=== PATIENT | female | born 1985 | race African-American/Black ===

== ENCOUNTER 2018-01-28 06:39 | Emergency (ER) | payer MEDICAID ==
[~2018-01-28] VITALS: Ht 157.5 cm; Wt 54.0 kg
[2018-01-28] MEDS ORDERED: SODIUM CHLORIDE 0.9% 1,000 ML IV ONE (10:06)
[2018-01-28] MEDS ORDERED: ONDANSETRON HCL 4MG/2ML VIAL IV STA (10:06)
[2018-01-28] MEDS ORDERED: MORPHINE SULFATE 4 MG/ML CPJ (NOT FOR IM USE) IV STA (10:06)
[2018-01-28 10:13] LABS: CLARITY URINE CLEAR (CLEAR); COLOR URINE YELLOW (YELLOW); KETONES URINE TRACE (NEGATIVE); LEUKOCYTE ESTERASE URINE NEGATIVE (NEGATIVE); NITRITE URINE NEGATIVE (NEGATIVE); OCCULT BLOOD URINE NEGATIVE (NEGATIVE); PROTEIN URINE NEGATIVE (NEGATIVE); SPECIFIC GRAVITY URINE 1.015 (1.005-1.030); UROBILINOGEN URINE 0.2 E.U./dL (0.2-1.0)
[2018-01-28 10:28] LABS: *AMPHETAMINES SCREEN URINE NEGATIVE (NEGATIVE); *BARBITURATES SCREEN URINE NEGATIVE (NEGATIVE); *BENZODIAZEPINES SCREEN URINE NEGATIVE (NEGATIVE); *COCAINE SCREEN URINE NEGATIVE (NEGATIVE); CANNABINOID URINE SCREEN NEGATIVE (NEGATIVE)
[2018-01-28 10:28] LABS: BASOPHILS % 0.2 % (0.0-2.0); HEMATOCRIT. 41.8 % (36.0-48.0); HEMOGLOBIN. 14.4 g/dL (12.0-16.0); LYMPHOCYTES % 8.4 % (20.0-50.0); MEAN CORPUSCULAR HEMOGLOBIN 29.1 pg (28.0-32.0); MEAN CORPUSCULAR VOLUME 84.6 fL (81.0-99.0); MEAN PLATELET VOLUME 7.8 fl (7.4-10.4); MONOCYTES % 3.1 % (2.0-8.0); NEUTROPHILS % 88.3 % (40.0-76.0); PLATELET 498 x1000/uL (130-400); RED BLOOD CELL COUNT 4.94 mill/uL (4.2-5.4); RED CELL DISTRIBUTION WIDTH 12.6 % (11.6-14.6)
[2018-01-28 10:29] LABS: METHADONE URINE SCREEN NEGATIVE (NEGATIVE); OPIATES URINE SCREEN NEGATIVE (NEGATIVE); PHENCYCLIDINE URINE SCREEN NEGATIVE (NEGATIVE)
[2018-01-28 10:33] LABS: CHLORIDE 102 mEq/L (98-107)
[2018-01-28 10:37] LABS: ETHANOL BLOOD < 10 mg/dL
[2018-01-28] MEDS ORDERED: LORAZEPAM 2MG/ML CPJ IV ONE (12:30)
[2018-01-28 13:32] VITALS: BP 106/64
== END 2018-01-28 13:43 | disposition home or self-care (01) ==
LOC: ER 08:35
DX: R42 Dizziness and giddiness (principal); R00.2 Palpitations; I10 Essential (primary) hypertension; R00.0 Tachycardia, unspecified
CPT/HCPCS: 36415; 71045; 80053; 80305; 81003; 81025; 83690; 84443; 85025; 85379; 93005; 96361; 96374; 96375; 99285; G0482; J2060; J2270; J2405; J7030; Z7610